=== PATIENT | female | born 1970 | race Two or more races ===

== ENCOUNTER 2018-09-21 10:00 | Inpatient (IN) | payer OTHER ==
[~2018-09-21] VITALS: Ht 165.1 cm; Wt 81.2 kg
[2018-09-21] MEDS ORDERED: FOLGARD TABLET1 EACH PO (12:45)
[2018-09-21] MEDS ORDERED: NORVASC2.5 M1 PO (12:45)
[2018-09-21] MEDS ORDERED: ATIVAN0.5 M1 PO (12:46)
[2018-09-21] MEDS ORDERED: COLAGEN PO (12:46)
[2018-09-21] MEDS ORDERED: ST JOHN S WORT PO (12:47)
[2018-09-21] MEDS ORDERED: VENTOLIN HFA18 GM IH (12:48)
[2018-09-29] MEDS ORDERED: LEVSIN/SL0.125 MG SL (06:33)
[2018-09-29] MEDS ORDERED: OXYC1TAB9 PO (06:33)
== END 2018-09-29 08:58 | DRG 741 ==
LOC: SURH 10:00 → OB/GYN 09-27 06:00 → O/R 09-27 06:00 → SURH 09-27 08:45 → OB/GYN 09-27 10:31
PROVIDERS: ADMIT Obstetrics & Gynecology Gynecology
PROC: 0UT70ZZ Resection of Bilateral Fallopian Tubes, Open Approach (ICD-10-PCS; 2018-09-27)
PROC: 0UT90ZZ Resection of Uterus, Open Approach (ICD-10-PCS; principal; 2018-09-27 08:45)
DX: C54.1 Malignant neoplasm of endometrium (principal); D25.1 Intramural leiomyoma of uterus; N80.0 Endometriosis of uterus; I10 Essential (primary) hypertension